=== PATIENT | male | born 1995 | race Caucasian/White ===

== ENCOUNTER → 2021-09-25 | Emergency (ER) | payer MEDICAID ==
[~2021-09-25] VITALS: Ht 193 cm; Wt 90.7 kg
[~2021-09-25] MED LIST: HYDR1TAB97 PO
[2021-09-25 10:18] VITALS: BP 174/105
== END | disposition home or self-care (01) ==
LOC: ER 09:08
DX: S92.351A Displaced fracture of fifth metatarsal bone, right foot, initial encounter for closed fracture (principal); E11.9 Type 2 diabetes mellitus without complications; Z79.899 Other long term (current) drug therapy; X50.1XXA Overexertion from prolonged static or awkward postures, initial encounter; Y93.67 Activity, basketball; Y92.89 Other specified places as the place of occurrence of the external cause; Y99.8 Other external cause status
CPT/HCPCS: 29125; 29515; 73610; 73630

== ENCOUNTER 2022-07-02 16:07 | Emergency (ER) | payer MEDICAID ==
[~2022-07-02] VITALS: Ht 190.5 cm; Wt 87.3 kg
[2022-07-02 19:49] VITALS: BP 139/79
== END 2022-07-02 19:58 | disposition home or self-care (01) ==
LOC: ER 16:07
DX: S02.31XA Fracture of orbital floor, right side, initial encounter for closed fracture (principal); S06.890A Other specified intracranial injury without loss of consciousness, initial encounter; E11.9 Type 2 diabetes mellitus without complications; Y04.0XXA Assault by unarmed brawl or fight, initial encounter; Y93.89 Activity, other specified; Y92.89 Other specified places as the place of occurrence of the external cause; Y99.8 Other external cause status
CPT/HCPCS: 70486

== ENCOUNTER 2022-10-15 17:53 | Emergency (ER) | payer MEDICAID ==
[~2022-10-15] VITALS: Ht 190.5 cm; Wt 81.4 kg
[2022-10-15 18:41] LABS: Basophils # (auto) 0 10 ^3/uL (0-0.2); Eosinophils # (auto) 0 10 ^3/uL (0-0.8); Eosinophils % (auto) 0.5 % (0.0-7.0); Lymphocytes # (auto) 2.1 10 ^3/uL (0.4-5.4); Monocytes # (auto) 0.6 10 ^3/uL (0-1.3); Neutrophils # (auto) 4.1 10 ^3/uL (1.6-8.6); Nucleated Red Blood Cells % 0.2 %
[2022-10-15 18:43] LABS: Basophils % (auto) 0.6 % (0.0-2.0); Hematocrit 53.3 % (41.0-53.0); Hemoglobin 18.1 g/dL (13.5-17.5); Lymphocytes % (auto) 30.3 % (10.0-50.0); Mean Corpuscular Hemoglobin 33.1 pg (28.0-32.0); Mean Corpuscular Volume 97.5 fL (80.0-100.0); Monocytes % (auto) 9.1 % (0.0-12.0); Neutrophils % (auto) 59.5 % (37.0-80.0); Red Blood Cells 5.47 10^6/uL (4.5-5.90); Red Cell Distribution Width 14.1 % (11.8-14.3)
[2022-10-15 19:00] LABS: Albumin 4.2 g/dL (3.4-5.0); Calcium 9.9 mg/dL (8.5-10.1)
[2022-10-15] MEDS ORDERED: SODIUM CHLORIDE 0.9% 1,000 ML IV ONE ×2 (19:00→20:00)
[2022-10-15 19:04] LABS: BUN/Creatinine Ratio 6.3 (10.0-20.0); Bilirubin, Total 2.5 mg/dL (0.2-1.0); Total Protein 7.7 g/dL (6.4-8.2)
[2022-10-15 21:12] LABS: Urine Bacteria NONE SEEN /hpf (None Seen); Urine Blood Negative /uL (Negative); Urine Specific Gravity 1.036 (1.001-1.035); Urine WBC <1 /hpf (0 - 3)
[2022-10-15] MEDS ORDERED: InsuLIN REG 1unit/0.01ml Soln (100units/ml) IV ONE (21:30)
[2022-10-15 22:12] VITALS: BP 149/82
== END 2022-10-15 22:13 | disposition home or self-care (01) ==
LOC: ER 17:53
DX: E10.65 Type 1 diabetes mellitus with hyperglycemia (principal); R10.12 Left upper quadrant pain
CPT/HCPCS: 36415; 71045; 74176; 76705; 80053; 81001; 82010; 82962; 83690; 85025; 96361; 96374; 99285; J1815; J7030

== ENCOUNTER 2024-08-10 08:38 | Emergency (ER) | payer MEDICAID ==
[~2024-08-10] VITALS: Ht 177.8 cm; Wt 75.1 kg
[2024-08-10 09:27] VITALS: BP 139/68; PULSE 117; RESP 17; TEMP 97.9; O2SAT 96
[2024-08-10] MEDS: INSULIN LISPRO (HUMAN) 100 UNITS/ML ML SC ONE (10:00)
[2024-08-10 10:31] LABS: Basophils # (auto) 0 10 ^3/uL (0-0.2); Basophils % (auto) 0.5 % (0.0-2.0); Eosinophils # (auto) 0.1 10 ^3/uL (0-0.8); Eosinophils % (auto) 0.8 % (0.0-7.0); Hematocrit 37.5 % (41.0-53.0); Hemoglobin 12.7 g/dL (13.5-17.5); Lymphocytes % (auto) 25.7 % (10.0-50.0); Mean Corpuscular Hemoglobin 30.8 pg (28.0-32.0); Mean Corpuscular Hgb Conc. 33.8 g/dL (32.0-36.0); Monocytes # (auto) 0.6 10 ^3/uL (0-1.3); Monocytes % (auto) 7.1 % (0.0-12.0); Neutrophils # (auto) 5.2 10 ^3/uL (1.6-8.6); Neutrophils % (auto) 65.9 % (37.0-80.0); Platelet Count (auto) 425 10^3/uL (140-450); Red Blood Cells 4.13 10^6/uL (4.5-5.90); Red Cell Distribution Width 12.6 % (11.8-14.3); White Blood Cell 7.9 10^3/uL (4.4-10.8)
[2024-08-10 10:49] LABS: Alanine Aminotransferase 34 U/L (7-40); Albumin 3.8 g/dL (3.2-4.8); Anion Gap 5 (5-15); Aspartate Aminotransferase 26 U/L (13-40); BUN/Creatinine Ratio 12.6 (10.0-20.0); Blood Urea Nitrogen 11 mg/dL (9-23); Calcium 9.1 mg/dL (8.7-10.4); Carbon Dioxide 26 mmol/L (20-31); Chloride 101 mmol/L (98-107); Potassium 3.9 mmol/L (3.5-5.1); Total Protein 6.6 g/dL (5.7-8.2)
[2024-08-10 10:57] LABS: Glucose 378 mg/dL (74-106); Sodium 132 mmol/L (136-145)
[2024-08-10 10:58] LABS: Alkaline Phosphatase 144 U/L (46-116); Bilirubin, Total 0.3 mg/dL (0.2-1.0)
[2024-08-10] MEDS ORDERED: INSLANTI SC (11:20)
--- NOTE | 2024-08-10 11:20 | ED.PDOC ---
Musculoskeletal HPI Comments 29 year old M is type 1 diabetic and presents with a chief complaint of atraumatic right knee pain. Also reports that his Lantus was still in one week ago Able to bear weight on the leg Denies trauma to the knee or recent fall Denies skin color changes around the knee Denies masses around the knee Denies popping/locking/giving out of the knee Denies fever chills night sweats nausea vomiting Denies previous surgeries to the knee nor significant injury Chief Complaint: Lower Extremity Time Seen by MD: 09:10 Primary Care Provider: none Reviewed Notes: Nurses Notes, Medications, Allergies Allergies: Coded Allergies: NO KNOWN ALLERGIES (Unverified , 10/08/10) Home Meds Active Scripts Hydrocodone-Acetaminophen (Hydrocodone/Acetaminophen 5-325 mg) 1 Tab Tab, 1 TAB PO Q8HPRN PRN for 2 Days, #6 TAB 0 Refills Prov:BARAK PEDRO MD 09/25/21 Information Source: Patient Mode of Arrival: Ambulatory Past Medical History PAST MEDICAL HISTORY: DM Surgical History: Denies all surgeries Family History Family History: Reviewed,noncontributory to illness, No family hx of Cancer, No family hx of DM, No family hx of Heart madelaine, No family hx of HTN, No family hx ofKidney madelaine, No family hx of Liver madelaine, No family hx of Lung madelaine, No family hx of Stroke Social History Smoker: Non-Smoker Alcohol: Denies ETOH Use Drugs: Denies Drug Use Lives In: Home All Other Systems: Reviewed and Negative (per hpi) Physical Exam General Appearance: No Apparent Distress, Normal HEENT: Normal ENT Inspection, Pharynx Normal, TMs Normal Neck: Full Range of Motion, Non-Tender, Normal, Normal Inspection Respiratory: Chest Non-Tender, Lungs Clear, No Accessory Muscle Use, No Respiratory Distress, Normal Breath Sounds Cardiovascular: No Edema, No JVD, No Murmur, No Gallop, Normal Peripheral Pulses, Regular Rate/Rhythm Breast Exam: Deferred Gastrointestinal: No Organomegaly, Non Tender, No Pulsatile Mass, Normal Bowel Sounds, Soft Genitalia: Deferred Pelvic: Deferred Rectal: Deferred Extremities: No calf tenderness, Normal capillary refill, Normal inspection, Normal range of motion, Non-tender, No pedal edema Musculoskeletal : Location: Right Extremity Location: Knee (mild swelling. no ttp. full rom) Apperance: Normal Neurologic: Alert, bundle person II-XII nml as Tested, No Motor Deficits, Normal Affect, Normal Mood, No Sensory Deficits Cerebellar Function: Normal Reflexes: Normal Skin: Dry, Normal Color, Warm Lymphatic: No Adenopathy Was a procedure done? Was a procedure done?: No Differential Diagnosis EXT Differential Diagnosis: Sprain X-Ray, Labs, Meds, VS Vital Signs Date Time Temp Pulse Resp B/P (MAP) Pulse Ox O2 Delivery O2 Flow Rate FiO2 08/10/24 09:27 97.9 117 17 139/68 (91) 96 97.9 08/10/24 09:27 117 17 96 Room Air 08/10/24 09:15 97.9 117 17 139/68 (91) 96 Lab Test 08/10/24 10:10 08/10/24 09:54 08/10/24 09:02 Range/Units White Blood Count 7.9 4.4-10.8 10^3/uL Red Blood Count 4.13 L 4.5-5.90 10^6/uL Hemoglobin 12.7 L 13.5-17.5 g/dL Hematocrit 37.5 L 41.0-53.0 % Mean Corpuscular Volume 91.0 80.0-100.0 fL Mean Corpuscular Hemoglobin 30.8 28.0-32.0 pg Mean Corpuscular Hemoglobin Concent 33.8 32.0-36.0 g/dL Red Cell Distribution Width 12.6 11.8-14.3 % Platelet Count 425 140-450 10^3/uL Mean Platelet Volume 6.6 L 6.9-10.8 fL Neutrophils (%) (Auto) 65.9 37.0-80.0 % Lymphocytes (%) (Auto) 25.7 10.0-50.0 % Monocytes (%) (Auto) 7.1 0.0-12.0 % Eosinophils (%) (Auto) 0.8 0.0-7.0 % Basophils (%) (Auto) 0.5 0.0-2.0 % Neutrophils # (Auto) 5.2 1.6-8.6 10 ^3/uL Lymphocytes # (Auto) 2.0 0.4-5.4 10 ^3/uL Monocytes # (Auto) 0.6 0-1.3 10 ^3/uL Eosinophils # (Auto) 0.1 0-0.8 10 ^3/uL Basophils # (Auto) 0 0-0.2 10 ^3/uL Nucleated Red Blood Cells 0.0 % Urine Ketones Pending Sodium Level 132 L 136-145 mmol/L Potassium Level 3.9 3.5-5.1 mmol/L Chloride Level 101 98-107 mmol/L Carbon Dioxide Level 26 20-31 mmol/L Anion Gap 5 5-15 Blood Urea Nitrogen 11 9-23 mg/dL Creatinine 0.87 0.700-1.30 mg/dL Glomerular Filtration Rate Calc 121 >90 mL/min BUN/Creatinine Ratio 12.6 10.0-20.0 Serum Glucose 378 H 74-106 mg/dL Calcium Level 9.1 8.7-10.4 mg/dL Total Bilirubin 0.3 0.2-1.0 mg/dL Aspartate Amino Transferase (AST) 26 13-40 U/L Alanine Aminotransferase (ALT) 34 7-40 U/L Alkaline Phosphatase 144 H 46-116 U/L Total Protein 6.6 5.7-8.2 g/dL Albumin 3.8 3.2-4.8 g/dL Beta-Hydroxybutyric Acid Pending POC Glucose 364 H 378 H 70-106 mg/dl Current Medications Medications (Trade) Dose Ordered Sig/Emily Route Start Time Stop Time Status Last Admin Insulin Human Lispro (HumaLOG) 10 units ONCE ONCE SC 08/10/24 09:45 08/10/24 09:47 DC 08/10/24 10:00 X-Ray, Labs, Meds, VS Comment Patient without AGAP or significant ketones in urine to suggest DKA. Patients presentation most consistent with hyperglycemic state. Low suspicion for atypical UT, acute abdomen, or other serious bacterial illness as cause of hyperglycemia. Interventions: 10 units regular insulin On re-evaluation, patients serum glucose downtrended significantly with stable electrolytes and no anion gap at this time. Disposition: Stable for discharge home with appropriate insulin regimen and prompt PCP follow up instructions. On reevaluation, patient had symptomatic improvement. Patient is stable for discharge at this time. External notes reviewed. Test results and diagnostic imaging interpreted. All diagnostic findings, discharge care, education and instructions provided Follow-up with PCP in 2 to 3 days Patient verbalized understanding and agreed to treatment plan Vital signs stable, afebrile, no acute distress noted Patient ambulatory with strong steady gait Advised to return precautions for any new or worsening symptoms, return to ER immediately for re-evaluation Patient is aware that the purpose of this visit was for an acute medical emergency requiring emergent stabilization. Chronic conditions, including malignancies have not been ruled out. Patient is instructed to follow up with PCP as directed and discharge instructions for continued care and workup. If unable to arrange follow-up, patient is to return to the emergency department for reassessment. Patient (parent or legal guardian if applicable) was given verbal and written discharge instructions and acknowledges understanding. Time of 1ST Reevaluation: 11:16 Reevaluation 1ST: Improved Patient Education/Counseling: Diagnosis, Treatment Family Education/Counseling: Diagnosis, Treatment Departure 1 Departure Time of Disposition: 11:17 Impression: Primary Impression: Hyperglycemia Disposition: HOME / SELF CARE / HOMELESS Condition: Stable e-Prescriptions Insulin Glargine (Lantus) 100 Unit/Ml Inj 6 UNIT SC QPM for 30 Days, #1 VIAL 0 Refills Prov: TAI CHAN NP 08/10/24 Critical Care Note Critical Care Time?: No Stability Stability form required: No Heart Score Heart Score: Heart Score Response (Comments) Value History N/A 0 EKG N/A 0 Age N/A 0 Risk Factors N/A 0 Troponin N/A 0 Total 0 TAI CHAN NP Aug 10, 2024 11:20
[2024-08-10] MEDS ORDERED: FURO40TA4 PO (11:31)
== END 2024-08-10 11:33 | disposition home or self-care (01) ==
LOC: ER 08:38
DX: M25.561 Pain in right knee (principal); E11.65 Type 2 diabetes mellitus with hyperglycemia; Z79.4 Long term (current) use of insulin; Z79.899 Other long term (current) drug therapy
CPT/HCPCS: 36415; 80053; 82010; 82962; 85025; 96372; 99283; J1815

== ENCOUNTER 2025-04-12 13:10 | Emergency (ER) | payer MEDICAID ==
[~2025-04-12] VITALS: Ht 190.5 cm; Wt 64.0 kg
[~2025-04-12 13:10] MED LIST changes: +FURO40TA4 PO; +INSLANTI SC
[2025-04-12 13:11] VITALS: BP 111/72; PULSE 102; RESP 16; TEMP 98.2; O2SAT 97
== END 2025-04-12 17:13 | disposition left against medical advice (07) ==
LOC: EDBD 13:10 → ER 13:10
DX: R10.9 Unspecified abdominal pain (principal); Z79.899 Other long term (current) drug therapy
CPT/HCPCS: 82947